=== PATIENT | female | born 1985 | race Caucasian/White ===

== ENCOUNTER 2018-03-19 09:29 | Emergency (ER) | payer SELFPAY ==
[2018-03-19] MEDS ORDERED: NA CHLORIDE 0.9% 1,000 ML ONE (10:13)
[2018-03-19 11:18] LABS: Urine Blood NEGATIVE (NEG); Urine Glucose NEGATIVE (NEG); Urine Protein NEGATIVE (NEG)
[2018-03-19 11:20] LABS: Absolute Lymphocytes (CBC) 1.5 K/uL (0.7-4.9); Absolute Monocytes 0.4 K/uL (0.1-1.3); Absolute Neutrophil 4.5 K/uL (1.8-8.0); Basophils % 0.7 % (0-1.3); Eosinophils % 1.3 % (0-4.4); Hematocrit 41.2 % (36.0-45.0); Lymphocytes % 23.1 % (15.3-44.8); MCH 28.5 pg (27.0-35.0); MCV 84.2 fL (80-100); MPV 9.1 fL (7.6-11.3); Monocytes % 6.7 % (3.3-12.3)
[2018-03-19 11:21] LABS: Urine Bacteria <20 /HPF (<20); Urine Culture Reflex Order NOT NEEDED; Urine RBC <5 /HPF (NONE SEEN)
[2018-03-19 11:33] LABS: Bicarbonate 29 mEq/L (21-31); Glucose Level 90 mg/dL (65-120); Lipase 26 U/L (22-51); Potassium 4.2 mEq/L (3.6-5.0); Sodium Level 135 mEq/L (135-145)
[2018-03-19 11:39] LABS: ALT/SGPT 18 IU/L (10-60); AST/SGOT 19 IU/L (10-42); Albumin 3.9 g/dL (3.2-5.5); Alkaline Phosphatase 66 IU/L (42-121); Amylase Level 49 U/L (28-100); BUN Blood Urea Nitrogen 7 mg/dL (6-20); Bilirubin Direct < 0.1 mg/dL (0-0.2); Bilirubin Total 0.3 mg/dL (0.3-1.2)
--- NOTE | 2018-03-19 12:03 | RAD REPORT ---
EXAM DESCRIPTION: CT - Abdomen Pelvis W Contrast - 03/19/2018 11:51 am CLINICAL HISTORY: Abdominal pain, pelvic pain, dysuria, increased urinary frequency ; history of kid anayeli stones appendectomy and cholecystectomy COMPARISON: None. TECHNIQUE: Biphasic, helical CT imaging of the abdomen and pelvis was performed following 100 ml non -ionic IV contrast. Oral contrast was given. All CT scans are performed using dose optimization technique as appropriate and may include automated exposure control or mA/KV adjustment according to patient size. FINDINGS: No suspicious findings in the lung bases. The liver, spleen, and pancreas show no suspicious findings. Cholecystectomy clips are present. No bi liary tree dilatation. Symmetric renal function is seen with no hydronephrosis or suspicious renal mass. No CT evidence for pyelonephritis. No urinary bladder wall thickening or enhancement. No bladder calculi. Uterus and ova radha show no suspicious findings. No dilated bowel loops or bowel wall thickening. No free air, free fluid or inflammatory stranding. No hernia, mass or bulky lymphadenopathy. The urinary bladder is without significant finding. No adr enal abnormality. No suspicious bony findings. IMPRESSION: No CT evidence for pyelonephritis or cystitis. No acute finding is identifiable. No acute GI or SENSITIZER process.
--- NOTE | 2018-03-19 12:39 | EDPHYS ---
Physician Documentation [facility] Name: Reji Palacios Age: 32 yrs Sex: Female : 1985 Arrival Date: 03/19/2018 Time: 09:33 Bed 15 Private MD: None, None ED Physician Imtiaz Castanon HPI: 03/19 10:15 This 32 yrs old Female presents to ER via Ambulatory with complaints of Back cp Pain, Urinary Problem. 10:15 The patient presents with pain that is acute, with no known mechanism of injury. The cp symptoms are located in the mid back area. Onset: The symptoms/episode began/occurred today. The pain radiates to the abdomen. Associated signs and symptoms: Pertinent positives: dysuria, nausea, Pertinent negatives: chest pain, constipation, fever, vomiting. 10:15 Severity of symptoms: in the emergency department the symptoms are unchanged, despite cp home interventions. 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 - Social history:: Smoking status: Patient uses tobacco products, smokes one-half pack cigarettes per day. - Ebola Screening: : No symptoms or risks identified at this time. ROS: 10:20 Constitutional: Negative for body aches, chills, fever, poor PO intake. cp 10:20 Eyes: Negative for injury, pain, redness, and discharge. cp 10:20 ENT: Negative for drainage from ear(s), ear pain, sore throat, difficulty swallowing, difficulty handling secretions. 10:20 Neck: Negative for pain with movement, pain at rest, stiffness, tenderness, bony tenderness. 10:20 Cardiovascular: Negative for chest pain, edema, palpitations. 10:20 Respiratory: Negative for cough, shortness of breath, wheezing. 10:20 Abdomen/GI: Positive for abdominal pain, nausea, Negative for vomiting, diarrhea, constipation, black/tarry stool, rectal bleeding. 10:20 Back: Positive for pain at rest, pain with movement, of the mid back area. 10:20 : Positive for urinary symptoms, Negative for pelvic pain, vaginal bleeding, vaginal discharge. 10:20 Skin: Negative for cellulitis, rash. 10:20 Neuro: Negative for altered mental status, headache, numbness, weakness. 10:20 All other systems are negative. Exam: 10:28 Constitutional: The patient appears in no acute distress, alert, awake, non-toxic, well cp developed, well nourished. 10:28 Head/Face: Normocephalic, atraumatic. cp 10:28 Eyes: Periorbital structures: appear normal, Conjunctiva: normal, no exudate, no injection, Sclera: no appreciated abnormality, Lids and lashes: appear normal, bilaterally. 10:28 ENT: External ear(s): are unremarkable, Nose: is normal, Mouth: Lips: moist, Oral mucosa: pink and intact, moist, Posterior pharynx: is normal, airway is patent, no erythema, no exudate, Voice: is normal. 10:28 Neck: ROM/movement: is normal, is supple, without pain, no range of motions limitations, no nuchal rigidity. 10:28 Chest/axilla: Inspection: normal, Palpation: is normal, no crepitus, no tenderness. 10:28 Cardiovascular: Rate: normal, Rhythm: regular, Edema: is not appreciated, JVD: is not appreciated. 10:28 Respiratory: the patient does not display signs of respiratory distress, Respirations: normal, no use of accessory muscles, no retractions, no splinting, no tachypnea, labored breathing, is not present, Breath sounds: are clear throughout, no decreased breath sounds, no stridor, no wheezing. 10:28 Abdomen/GI: Inspection: abdomen appears normal, Bowel sounds: active, all quadrants, Palpation: soft, in all quadrants, moderate abdominal tenderness, in all quadrants, rebound tenderness, is not appreciated, voluntary guarding, is not appreciated, involuntary guarding, is not appreciated. 10:28 Back: pain, that is moderate, of the mid back area, ROM is normal, Straight leg raises: of both lower extremities does not illicit pain. 10:28 Skin: cellulitis, is not appreciated, no rash present. 10:28 Neuro: Orientation: to person, place \T\ time. Mentation: lucid, able to follow commands, Cerebellar function: is grossly normal, Motor: moves all fours, strength is normal, Sensation: is normal. Vital Signs: 09:40 BP 127 / 96; Pulse 70; Resp 18; Temp 98.2; Pulse Ox 99% on R/A; Weight 65.77 kg; Height ph 5 ft. 4 in. (162.56 cm); 10:40 BP 114 / 83; Pulse 77; Resp 16; Pulse Ox 100% on R/A; tw2 11:37 BP 116 / 70; Pulse 63; Resp 17; Pulse Ox 99% on R/A; tw2 12:40 BP 113 / 74; Pulse 76; Resp 16; Pulse Ox 100% on R/A; tw2 13:30 BP 112 / 77; Pulse 79; Resp 17; Pulse Ox 99% on R/A; tw2 09:40 Body Mass Index 24.89 (65.77 kg, 162.56 cm) ph MDM: 09:53 Patient medically screened. cp 11:00 Differential diagnosis: ruptured disc, Ureterolithiasis UTI, pancreatitis, back pain. cp 12:55 Data reviewed: vital signs, nurses notes, lab test result(s), radiologic studies, CT cp scan. 12:55 Counseling: I had a detailed discussion with the patient and/or guardian regarding: the cp historical points, exam findings, and any diagnostic results supporting the discharge/admit diagnosis, lab results, radiology results, to return to the emergency department if symptoms worsen or persist or if there are any questions or concerns that arise at home. Response to treatment: the patient's symptoms have markedly improved after treatment, and as a result, I will discharge patient. Special discussion: Based on the patient's Hx, exam, and Dx evaluation, there is no indication for emergent surgery or inpatient Tx. It is understood by the patient/guardian that if the Sx's persist or worsen they need to return immediately for re-evaluation. 03/19 10:10 Order name: Amylase, Serum; Complete Time: 11:43 cp 03/19 10:10 Order name: Basic Metabolic Panel; Complete Time: 11:43 cp 03/19 10:10 Order name: CBC with Diff; Complete Time: 11:43 cp 03/19 11:43 Interpretation: Normal except: RBC 4.90. cp 03/19 10:10 Order name: Creatinine for Radiology; Complete Time: 11:43 cp 03/19 10:10 Order name: Hepatic Function; Complete Time: 11:43 cp 03/19 10:10 Order name: Lipase; Complete Time: 11:43 cp 03/19 10:10 Order name: Urine Test (obtain specimen); Complete Time: 10:11 cp 03/19 10:10 Order name: Urine Microscopic Only; Complete Time: 11:43 cp 03/19 10:10 Order name: IV Saline Lock; Complete Time: 10:24 cp 03/19 10:10 Order name: CT Abd/Pelvis - W/Contrast: no oral contrast; Complete Time: 12:15 cp 03/19 10:16 Order name: Urine Dipstick--Ancillary (enter results); Complete Time: 11:43 bd 03/19 10:16 Order name: Urine --Ancillary (enter results); Complete Time: 11:43 bd 03/19 10:10 Order name: Labs collected and sent; Complete Time: 10:24 cp 03/19 10:10 Order name: Urine Dipstick-Ancillary (obtain specimen); Complete Time: 10:11 cp Administered Medications: 10:24 Drug: NS 0.9% 1000 ml Route: IV; Rate: 1 bolus; Site: left antecubital; tw2 12:50 Follow up: Response: No adverse reaction; IV Status: Completed infusion; IV Intake: tw2 1000ml 12:50 Drug: TORadol 30 mg Route: IVP; Site: left antecubital; tw2 13:20 Follow up: Response: No adverse reaction ss Disposition: 03/19/18 12:38 Discharged to Home. Impression: Low back pain. - Condition is Stable. - Discharge Instructions: Back Pain, Adult, Back Exercises, [id number]. - Prescriptions for Cyclobenzaprine 10 mg Oral Tablet - take 1 tablet by ORAL route every 8 hours As needed no driving while taking medication; 15 tablet. Diclofenac Sodium 75 mg Oral Tablet, Delayed Release (E.C.) - take 1 tablet by ORAL route 2 times per day; 15 tablet. - Medication Reconciliation Form, Thank You Letter, Antibiotic Education, Prescription Opioid Use form. - Follow up: Private Physician; When: 1 - 2 days; Reason: Recheck today's complaints. - Problem is new. - Symptoms have improved. Addendum: 03/20/2018 14:54 Co-signature as Attending Physician, Imtiaz Castanon MD. g s Signatures: Dispatcher [employer] Caprice Carrington RN RN Antoni Moser PA PA cp Sumaya Harp RN RN tw2 Imtiaz Castanon MD MD Cora Hawkins RN ss Corrections: (The following items were deleted from the chart) 03/19 13:31 12:38 03/19/2018 12:38 Discharged to Home. Impression: Low back pain. Condition is tw2 Stable. Forms are Medication Reconciliation Form, Thank You Letter, Antibiotic Education, Prescription Opioid Use. Follow up: Private Physician; When: 1 - 2 days; Reason: Recheck today's complaints. Problem is new. Symptoms have improved. cp
--- NOTE | 2018-03-19 12:39 | ER ---
Nurse's Notes [facility] Name: Reji Palacios Age: 32 yrs Sex: Female : 1985 Arrival Date: 03/19/2018 Time: 09:33 Bed 15 Private MD: None, None Diagnosis: Low back pain Presentation: 03/19 09:37 Presenting complaint: Mother states: " My kidneys are hurting and it santiago when I pee." ph Pt reports doyle lower back pain, worse on L, radiates to LLQ, also reports burning w/ urination and urinary frequency, also c/o nausea, hx of kidney infections and kidney stones. Transition of care: patient was not received from another setting of care. Onset of symptoms was March 19, 2018. Risk Assessment: Do you want to hurt yourself or someone else? Patient reports no desire to harm self or others. Initial Sepsis Screen: Does the patient meet any 2 criteria? No. Patient's initial sepsis screen is negative. Does the patient have a suspected source of infection? No. Patient's initial sepsis screen is negative. Care prior to arrival: None. 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 - Social history:: Smoking status: Patient uses tobacco products, smokes one-half pack cigarettes per day. - Ebola Screening: : No symptoms or risks identified at this time. Screenin:43 Abuse screen: Denies threats or abuse. Nutritional screening: No deficits noted. tw2 Tuberculosis screening: No symptoms or risk factors identified. Fall Risk None identified. Assessment: 09:40 General: Appears in no apparent distress. Behavior is calm, cooperative, appropriate tw2 for age. Pain: Complains of pain in left low back and right low back. Neuro: Level of Consciousness is awake, alert, obeys commands, Oriented to person, place, time, situation. Cardiovascular: Denies chest pain, shortness of breath, Heart tones S1 S2 Capillary refill < 3 seconds Patient's skin is warm and dry. Respiratory: Airway is patent Respiratory effort is even, unlabored, Respiratory pattern is regular, symmetrical, Breath sounds are clear bilaterally. GI: Abdomen is flat, Bowel sounds present X 4 quads. Abd is soft X 4 quads Reports lower abdominal pain, nausea. : Reports burning with urination, urinary frequency. EENT: No signs and/or symptoms were reported regarding the EENT system. Derm: No signs and/or symptoms reported regarding the dermatologic system. Musculoskeletal: Capillary refill < 3 seconds, Range of motion: intact in all extremities. 10:40 Reassessment: Patient appears in no apparent distress at this time. No changes from tw2 previously documented assessment. Patient and/or family updated on plan of care and expected duration. Pain level reassessed. Patient is alert, oriented x 3, equal unlabored respirations, skin warm/dry/pink. 11:38 Reassessment: Patient appears in no apparent distress at this time. No changes from tw2 previously documented assessment. Patient and/or family updated on plan of care and expected duration. Pain level reassessed. Patient is alert, oriented x 3, equal unlabored respirations, skin warm/dry/pink. 12:40 Reassessment: Patient appears in no apparent distress at this time. No changes from tw2 previously documented assessment. Patient and/or family updated on plan of care and expected duration. Pain level reassessed. Patient is alert, oriented x 3, equal unlabored respirations, skin warm/dry/pink. 13:30 Reassessment: Patient appears in no apparent distress at this time. No changes from tw2 previously documented assessment. Patient and/or family updated on plan of care and expected duration. Pain level reassessed. Patient is alert, oriented x 3, equal unlabored respirations, skin warm/dry/pink. Vital Signs: 09:40 BP 127 / 96; Pulse 70; Resp 18; Temp 98.2; Pulse Ox 99% on R/A; Weight 65.77 kg; Height ph 5 ft. 4 in. (162.56 cm); 10:40 BP 114 / 83; Pulse 77; Resp 16; Pulse Ox 100% on R/A; tw2 11:37 BP 116 / 70; Pulse 63; Resp 17; Pulse Ox 99% on R/A; tw2 12:40 BP 113 / 74; Pulse 76; Resp 16; Pulse Ox 100% on R/A; tw2 13:30 BP 112 / 77; Pulse 79; Resp 17; Pulse Ox 99% on R/A; tw2 09:40 Body Mass Index 24.89 (65.77 kg, 162.56 cm) ED Course: 09:33 Patient arrived in ED. mr 09:33 None, None is Private Physician. mr 09:39 Triage completed. ph 09:41 Arm band placed on. ph 09:45 Sumaya Harp RN is Primary Nurse. tw2 09:51 Antoni Jeff PA is PHCP. cp 09:51 Imtiaz Castanon MD is Attending Physician. cp 09:55 Patient has correct armband on for positive identification. Placed in gown. Bed in low mh5 position. Warm blanket given. Pulse ox on. NIBP on. 09:55 Urine collected: clean catch specimen, clear. mh5 10:00 Inserted saline lock: 22 gauge in left antecubital area, using aseptic technique. Blood tw2 collected. 10:13 Radiology exam delayed due to lab results not completed at this time. eh 10:23 Urine --Ancillary (enter results) Sent. 5 10:23 Urine Dipstick--Ancillary (enter results) Sent. 5 10:23 Urine Microscopic Only Sent. 5 10:40 Radiology exam delayed due to lab results not completed at this time. eh 11:[address] eh 11:41 CT completed. Patient tolerated procedure well. Patient moved back from CT. vm2 11:51 CT Abd/Pelvis - W/Contrast: no oral contrast In Process Unspecified. EDMS 13:28 No provider procedures requiring assistance completed. tw2 13:29 IV discontinued, intact, bleeding controlled, No redness/swelling at site. Pressure tw2 dressing applied. Administered Medications: 10:24 Drug: NS 0.9% 1000 ml Route: IV; Rate: 1 bolus; Site: left antecubital; tw2 12:50 Follow up: Response: No adverse reaction; IV Status: Completed infusion; IV Intake: tw2 1000ml 12:50 Drug: TORadol 30 mg Route: IVP; Site: left antecubital; tw2 13:20 Follow up: Response: No adverse reaction ss Intake: 12:50 IV: 1000ml; Total: 1000ml. tw2 Outcome: 12:38 Discharge ordered by MD. pineda 13:29 Discharged to home ambulatory. tw2 13:29 Condition: stable 13:29 Discharge instructions given to patient, Instructed on discharge instructions, follow up and referral plans. no drinking with medication, no driving heavy equipment, medication usage, Demonstrated understanding of instructions, follow-up care, medications, Prescriptions given X 2. 13:31 Patient left the ED. tw2 Signatures: Dispatcher [employer] EDMT Marion Ca Ren, Cora Vang, GISEL RN Caprice Minor RN RN angelita Jeff, Antoni, SOUMYA PA Sumaya Brown RN RN 2 Marion Cole [facility] Umm Watts [facility]
[2018-03-19] MEDS ORDERED: KETOROLAC 30 MG/ML INJ ONE (12:46)
== END 2018-03-19 13:31 | disposition home or self-care (01) ==
LOC: ER 09:29
DX: M54.5 Low back pain (principal); F17.210 Nicotine dependence, cigarettes, uncomplicated; Z87.442 Personal history of urinary calculi
CPT/HCPCS: 36415; 74177; 80048; 80076; 81003; 81015; 81025; 82150; 83690; 85025; 96361; 96374; 99284; J7030; Q9967